=== PATIENT | male | born 1995 | race Caucasian/White ===

== ENCOUNTER 2021-03-21 08:01 | Emergency (ER) | payer SELFPAY ==
[~2021-03-21] VITALS: Ht 182.9 cm; Wt 80.0 kg
[2021-03-21] MEDS ORDERED: SODIUM CHLORIDE 0.9% 1,000 ML IV ONE (08:30)
[2021-03-21 09:12] LABS: HEMATOCRIT. 39.9 % (42.0-52.0); HEMOGLOBIN. 13.8 g/dL (14.0-18.0); MEAN CORPUSCULAR HEMOGLOBIN 27.8 pg (28.0-32.0); MEAN CORPUSCULAR VOLUME 80.2 fL (80.0-94.0); RED BLOOD CELL COUNT 4.97 mill/uL (4.7-6.1); RED CELL DISTRIBUTION WIDTH 13.4 % (11.6-14.6)
[2021-03-21 09:16] LABS: CHLORIDE 109 mEq/L (98-107)
[2021-03-21 09:23] LABS: ETHANOL BLOOD < 10 mg/dL
[2021-03-21 10:16] LABS: PLATELET ESTIMATE NORMAL
[2021-03-21 10:17] LABS: MEAN PLATELET VOLUME 9.6 fl (7.4-10.4); PLATELET 159 x1000/uL (130-400)
[2021-03-21 10:58] LABS: CLARITY URINE CLOUDY (CLEAR); COLOR URINE DARK YELLOW (YELLOW); KETONES URINE TRACE (NEGATIVE); LEUKOCYTE ESTERASE URINE NEGATIVE (NEGATIVE); NITRITE URINE NEGATIVE (NEGATIVE); OCCULT BLOOD URINE NEGATIVE (NEGATIVE); PH URINE 6.5 (4.5-8.0); PROTEIN URINE 1+ (NEGATIVE); SPECIFIC GRAVITY URINE 1.034 (1.005-1.030)
[2021-03-21 11:10] LABS: CANNABINOID URINE SCREEN PRESUMTIVE POSITIVE (NEGATIVE); METHADONE URINE SCREEN NEGATIVE (NEGATIVE); OPIATES URINE SCREEN PRESUMTIVE POSITIVE (NEGATIVE); PHENCYCLIDINE URINE SCREEN NEGATIVE (NEGATIVE)
[2021-03-21 11:11] LABS: *AMPHETAMINES SCREEN URINE PRESUMTIVE POSITIVE (NEGATIVE); *BARBITURATES SCREEN URINE NEGATIVE (NEGATIVE); *BENZODIAZEPINES SCREEN URINE PRESUMTIVE POSITIVE (NEGATIVE); *COCAINE SCREEN URINE NEGATIVE (NEGATIVE)
[2021-03-21 14:33] VITALS: BP 124/74
== END 2021-03-21 15:29 | disposition left against medical advice (07) ==
LOC: ER 08:01
DX: T42.4X1A Poisoning by benzodiazepines, accidental (unintentional), initial encounter (principal); T62.0X1A Toxic effect of ingested mushrooms, accidental (unintentional), initial encounter; G92 Toxic encephalopathy; T40.601A Poisoning by unspecified narcotics, accidental (unintentional), initial encounter; T40.7X1A Poisoning by cannabis (derivatives), accidental (unintentional), initial encounter; T43.621A Poisoning by amphetamines, accidental (unintentional), initial encounter; T40.991A Poisoning by other psychodysleptics [hallucinogens], accidental (unintentional), initial encounter; F15.129 Other stimulant abuse with intoxication, unspecified; F11.129 Opioid abuse with intoxication, unspecified; F16.129 Hallucinogen abuse with intoxication, unspecified; F12.129 Cannabis abuse with intoxication, unspecified; F19.129 Other psychoactive substance abuse with intoxication, unspecified; Y92.89 Other specified places as the place of occurrence of the external cause
CPT/HCPCS: 36415; 70450; 71045; 80053; 80305; 80307; 80320; 80329; 81003; 85025; 96360; 99285; J7030; G0480